=== PATIENT | female | born 1935 | race Caucasian/White ===

== ENCOUNTER 2017-03-26 06:00 | Emergency (ER) | payer MEDICARE ==
[~2017-03-26] VITALS: Ht 165.1 cm; Wt 70.0 kg
[~2017-03-26 06:00] MED LIST: ASPIRIN EC81 MG PO; BENADRY2 EX; BENADRYL 50MG C50 MG PO; EFFEXOR XR150 MG PO; HYDROCHLOROT12.5 MG PO; MEDDOSEPAK PO; METAXALONE PO; OXYCODONE HCL5 MG PO; PARICALCITOL1 MCG PO; PROAMATINE5 MG PO; PROTONIX40 M2 PO; REQUIP0.5 MG PO; TOLTERODINE TART2 MG PO; TOVIAZ4 MG PO; VENLAFAXINE150 MG OR; VYTORIN 10/201 TAB PO; ZESTRIL10 M1 PO; ZETIA10 MG PO; ZOCOR20 MG PO
[2017-03-26 06:26] VITALS: BP 164/82
== END 2017-03-26 06:35 | disposition home or self-care (01) ==
LOC: ED 06:00
DX: R04.0 Epistaxis (principal)

== ENCOUNTER 2017-05-25 17:31 | Inpatient (IN) | payer MEDICARE ==
[~2017-05-25] VITALS: Ht 165.1 cm; Wt 64.0 kg
[~2017-05-25 17:31] MED LIST changes: -ASPIRIN EC81 MG PO; +BAYER ASPIRIN E81 MG PO
--- NOTE | 2017-05-25 17:31 | NUR ---
PT IMMEDIATLEY TO ROOM VIA EMS
--- NOTE | 2017-05-25 17:32 | NUR ---
PATIENT ASSESSED FOR POSSIBLE CVA. STROKE ALERT CALLED AND PATIENT TRANSPORTED TO RADIOLOGY FOR CT SCAN. PATIENT LAST KNOWN WELL TIME WAS 2 DAYS PRIOR. PATIENT ALERT TO PLACE AND TIME. PATIENT HAS SLURRED SPEECH WITH SLIGHT LEFT SIDED FACIAL DROOP AND LEFT LOWER EXTREMITY DRIFT. PATIENT ABLE TO IDENTIFY PICTURES PRESENTED IN FROM OF HER AND DESCRIBE WHAT SHE SEES. PATIENT DOES REPEAT WORDS AND PHRASES BACK TO YOU CORRECTLY BUT WORDS ARE SLURRED. PHYSICIAN AT BEDSIDE.
[2017-05-25] MEDS ORDERED: MAGNESIUM500 M3 PO (17:51)
[2017-05-25] MEDS ORDERED: VENLAFAXINE225 MG PO (17:52)
[2017-05-25] MEDS ORDERED: CALCI17 PO (17:53)
[2017-05-25] MEDS ORDERED: VITAMIN D2400 UNIT PO (17:53)
[2017-05-25] MEDS ORDERED: REQUIP XL2 MG PO (17:54)
[2017-05-25] MEDS ORDERED: LOPRESSOR25 M1 PO (17:55)
[2017-05-25] MEDS ORDERED: MIDODRINE10 MG PO (17:55)
[2017-05-25] MEDS ORDERED: PERCOCET1 TA4 PO (17:57)
[2017-05-25] MEDS ORDERED: VITAMIN D50000 UNIT PO (17:58)
--- NOTE | 2017-05-25 18:38 | NUR ---
PATIENT RESTING AWAITING LAB RESULTS PATIENT DENIES ANY PAIN AT THIS TIME. PATIENT REMAINS WITH SLURRED SPEECH AND LEFT LOWER EXTREMITY DRIFT.
[2017-05-25 18:47] LABS: HEMATOCRIT 35.3 % (37.0-47.0); HEMOGLOBIN 11.4 g/dl (12.0-16.0); IMMATURE GRANULOCYTES 0.7 % (0.0-1.0); MEAN CELL VOLUME 90.5 fL CALC (80.0-100.0); MEAN CORPUSCULAR HGB 29.2 pG CALC (26.0-32.0); MEAN CORPUSCULAR HGB CONC 32.3 g/L CALC (32.0-36.0); NEUT# 5.01 thou/uL (2.00-7.15); RED BLOOD COUNT 3.9 mill/uL (4.20-5.60); RED CELL DISTRI WIDTH 15.4 % (11.5-15.5)
[2017-05-25 19:06] LABS: ALBUMIN 3.8 g/dL (3.2-5.0); BILIRUBIN, TOTAL 0.8 mg/dL (0.0-1.4); CALCIUM 9.9 mg/dL (8.4-10.2); CREATININE 2.8 mg/dL (0.5-1.0); POTASSIUM 5.1 mmol/l (3.5-5.1); TOTAL PROTEIN 6.1 g/dL (6.3-8.2)
--- NOTE | 2017-05-25 19:10 | NUR ---
ASSISTED TO BEDSIDE COMMODE FOR URINALYSIS.
[2017-05-25 19:31] LABS: AMYLASE 43 u/l (30-110); LIPASE 134 u/l (23-300)
[2017-05-25 19:48] LABS: URINE BILIRUBIN - DIPSTICK NEGATIVE (NEGATIVE); URINE BLOOD DIPSTICK SMALL (NEGATIVE); URINE CLARITY SLIGHT CLOUDY; URINE COLOR YELLOW; URINE GLUCOSE - DIPSTICK NEGATIVE (NEGATIVE); URINE KETONE NEGATIVE (NEGATIVE); URINE PROTEIN - DIPSTICK 30 mg/dL (NEG-TRACE); URINE SPECIFIC GRAVITY >=1.030; URINE UROBILINOGEN - DIPSTICK 0.2 E.U./dL (0.2)
[2017-05-25 19:50] LABS: URINE LEUK ESTERASE SMALL (NEGATIVE); URINE NITRITE - DIPSTICK POSITIVE (Negative)
[2017-05-25 20:02] LABS: URINE BACTERIA MODERATE hpf; URINE SQUAMOUS EPITHELIAL CELL FEW EPI/hpf (0-FEW); URINE WBC 20-50 WBC/hpf (0-5)
--- NOTE | 2017-05-25 20:30 | NUR ---
PT. SITTING AT BEDSIDE AT THIS TIME. DENIES COMPLAINTS OF PAIN OR NEED. REMAINS NEUROLOGICALLY INTACT WITHOUT ANY DEFICITS NOTED. CALL LIGHT REMAINS WITHIN REACH.
--- NOTE | 2017-05-25 21:40 | NUR ---
SON AT BEDSIDE AT THIS TIME. SON AND PATIENT UPDATED ON CURRENT LAB RESULTS AND PENDING PHYSICIAN EVALUATION. DENIES OTHER COMPLAINTS AT THIS TIME. VSS. WILL CONTINUE TO ASSESS.
--- NOTE | 2017-05-25 22:15 | NUR ---
PT. PROVIDED WITH FOOD AND FLUIDS AT THIS TIME. UPDATED ON PLAN OF CARE AND NEED FOR POSSIBLE ADMISSION.
--- NOTE | 2017-05-25 22:44 | NUR ---
REPORT TO JOSE LOUIS.
--- NOTE | 2017-05-25 23:20 | NUR ---
PT. TAKEN UP TO MED/SURG AT THIS TIME.
[2017-05-25 23:25] VITALS: BP 151/78
--- NOTE | 2017-05-25 23:25 | NUR ---
PT ARRIVED TO UNIT VIA WHEELCHAIR WITH ER STAFF. ALERT AND ORIENTED. DENIES PAIN AT THIS TIME. RESPIRATIONS EVEN AND UNLABORED. COMPOUNDING AND FINISHING SUPERVISOR IN PLACE. ORIENTED TO ROOM AND CALL LIGHT SYSTEM. ABT GIVEN WITH NO ADVERSE EFFECTS NOTED. AFEBRILE. IV FLUIDS INFUSING ADEQUATELY. SAFETY MEASURES IN PLACE. CALL LIGHT WITHIN REACH.
--- NOTE | 2017-05-26 01:27 | NUR ---
PT FOUND WITH IV DISLODGED AND SENIOR NETWORK SYSTEMS ENGINEER REMOVED AND ON FLOOR. PT FOUND LAYING IN BED IN LEFT SIDED POSITION. STATES THAT SHE DOES NOT REMEMBER REMOVING IV AND TELE. BOTH REPLACED. 20 MINUTES LATER PT FOUND AMBULATING IN ROOM WITH OTC ASPIRIN BOTTLE OPEN. MEDICATION REMOVED FROM PT AND ASSISTED BACK TO BED. GAVE ROXICODONE AT THIS TIME. WILL CONTINUE TO MONITOR.
--- NOTE | 2017-05-26 03:29 | NUR ---
PT RESTLESS, BED ALARM PUT IN PLACE. NEW IV STARTED TO LFA; IV FLUIDS INFUSING ADEQUATELY. A&OX3, HOWEVER, APPEARS DISORIENTED AT TIMES TO SITUATION. NO CHANGES IN ASSESSMENT NOTED. SAFETY MEASURES IN PLACE. CALL LIGHT WITHIN REACH.
[2017-05-26 04:50] VITALS: BP 148/87
[2017-05-26 05:37] LABS: HEMATOCRIT 34.7 % (37.0-47.0); HEMOGLOBIN 11.2 g/dl (12.0-16.0); MEAN CELL VOLUME 90.1 fL CALC (80.0-100.0); MEAN CORPUSCULAR HGB 29.1 pG CALC (26.0-32.0); MEAN CORPUSCULAR HGB CONC 32.3 g/L CALC (32.0-36.0); RED BLOOD COUNT 3.85 mill/uL (4.20-5.60); RED CELL DISTRI WIDTH 15.5 % (11.5-15.5)
[2017-05-26 05:42] LABS: ALBUMIN 3.6 g/dL (3.2-5.0); BILIRUBIN, TOTAL 0.5 mg/dL (0.0-1.4); CALCIUM 9.5 mg/dL (8.4-10.2); CREATININE 2.5 mg/dL (0.5-1.0); POTASSIUM 4.4 mmol/l (3.5-5.1); TOTAL PROTEIN 5.9 g/dL (6.3-8.2)
--- NOTE | 2017-05-26 07:00 | NUR ---
RECEIVED BEDSIDE REPORT FROM HERIBERTO GARCIA. IN BATHROOM WITH STAND BY ASSIST. DENIES ANY NEEDS AT THIS TIME. #22 LFA INFUSING WOITHOUT DIFFICULTY, SITE APPEARS HEALTHY. PLAN OF CARE DISCUSSED. SAFETY PRECAUTIONS REINFORCED. BED IN LOWEST POSITION WITH WHEELS LOCKED. CALL LIGHT WITHIN REACH. WILL CONTINUE TO MONITOR.
[2017-05-26 08:54] VITALS: BP 133/77
--- NOTE | 2017-05-26 09:30 | NUR ---
SITTING ON SIDE OF BED. RESPS EVEN AND UNLABORED ON ROOM AIR, TELE MONITOR IN PLACE. #22 LFA INFUSING WITHOUT DIFFICULTY, SITE APPEARS HEALTHY. MEDICATED WITH TYLENOL 500MG PO FOR C/O 5/10 FLANK PAIN. CALL LIGHT WITHIN REACH. WILL CONTINUE TO MONITOR.
--- NOTE | 2017-05-26 10:30 | NUR ---
DR AGUIRRE IN TO SEE PT, NEW ORDERS RECEIVED.
[2017-05-26 11:03] VITALS: BP 155/94
[2017-05-26 15:29] VITALS: BP 159/87
--- NOTE | 2017-05-26 16:50 | NUR ---
SITTING ON EDGE OF BED, RESPS EVEN AND UNLABORED ON ROOM AIR, TELE MONITOR IN PLACE. MEDICATED WITH ROXICODONE PO FOR C/O OF 5/10 HEAD PAIN. WILL CONTINUE TO MONITOR. CALL LIGHT WITHIN REACH. BED ALARM ON FOR SAFETY.
[2017-05-26 18:55] VITALS: BP 163/67
--- NOTE | 2017-05-26 22:20 | NUR ---
PT RESTING IN SUPINE POSITION;PT NOTED TO BE VERY RESTLESS;PT A&O TO PERSON AND PLACE,SLIGHT CONFUSION AT TIMES;ASSESSMENT COMPLETED;IV FLUIDS INFUSING WELL TO LFA;RESPIRATIONS EVEN AND UNLABORED ON RA;TELE MONITOR IN PLACE;PT DENIES ANY PAIN OR DISCOMFORTS;SKIN INTACT;SAFETY PRECAUTIONS REINFORCED;BED ALARM ON FOR PT SAFETY;BED IN LOWEST POSITION WITH CALL LIGHT IN REACH;WILL CONTINUE TO MONITOR
[2017-05-26 23:25] VITALS: BP 140/68
--- NOTE | 2017-05-27 01:55 | NUR ---
PT AMBULATED WITH STEADY GAIT TO THE RESTROOM AND VOIDED 500CC OF YELLOW,CLOUDY URINE;PT DENIES ANY NEEDS AT THIS TIME;IV FLUIDS INFUSING WELL TO LFA;PT RE-POSITIONED BACK INTO BED AND ADDITIONAL BLANKETS PROVIDED;BED ALARM IN PLACE FOR PT SAFETY;CALL LIGHT IN REACH;WILL CONTINUE TO MONITOR
--- NOTE | 2017-05-27 03:51 | NUR ---
MANUAL BP OF 198/96 HR 69 OBTAINED AT THIS TIME;PT DENIES ANY PAIN OR DISCOMFORTS;IV APRESOLINE TO BE GIVEN BY TONY MEDINA;WILL CONTINUE TO MONITOR
--- NOTE | 2017-05-27 03:53 | NUR ---
PT'S B/P 198/96 AND HR 69, MEDICATED WITH ORDERED APRESOLINE, PRMIARY NURSE TO REASSESS B/P.
--- NOTE | 2017-05-27 04:11 | NUR ---
PT IS REFUSING LABS THIS MORNING STATING "I WANT ANSWERS, NO ONE CAN TAKE MY BLOOD";PT EDUCATED ON WHY LABS ARE NEEDED BUT STILL CONTINUES TO REFUSE,STATES "ILL TALK TO MY DOCTOR ABOUT THIS";WILL CONTINUE TO MONITOR
[2017-05-27 04:50] VITALS: BP 198/96
[2017-05-27 05:56] VITALS: BP 180/93
--- NOTE | 2017-05-27 07:00 | NUR ---
RECEIVED BEDSIDE REPORT FROM VELIA GARCIA. SITTING IN BEDSIDE RECLINER. RESPS EVEN AND UNLABORED ON ROOM AIR, TELE MONITOR IN PLACE. DENIES PAIN OR DISCOMFORT AT THIS TIME. PLAN OF CARE DISCUSSED. SAFETY PRECAUTIONS REINFORCED. BED IN LOWEST POSITION WITH WHEELS LOCKED. BED ALARM ON FOR SAFETY. CALL LIGHT WITHIN REACH. WILL CONTINUE TO MONITOR.
[2017-05-27 09:15] VITALS: BP 160/81
--- NOTE | 2017-05-27 10:00 | NUR ---
DR AGUIRRE IN TO SEE PT, NEW ORDERS RECEIVED.
[2017-05-27 10:07] LABS: HEMATOCRIT 36.6 % (37.0-47.0); HEMOGLOBIN 11.6 g/dl (12.0-16.0); IMMATURE GRANULOCYTES 0.4 % (0.0-1.0); MEAN CORPUSCULAR HGB 29.1 pG CALC (26.0-32.0); MEAN CORPUSCULAR HGB CONC 31.7 g/L CALC (32.0-36.0); NEUT# 7.55 thou/uL (2.00-7.15); RED BLOOD COUNT 3.98 mill/uL (4.20-5.60); RED CELL DISTRI WIDTH 15.6 % (11.5-15.5)
[2017-05-27] MEDS ORDERED: METAXALONE800 M1 PO (10:08)
[2017-05-27] MEDS ORDERED: ATORVASTATIN CA20 MG PO (10:09)
[2017-05-27] MEDS ORDERED: OXYBUTYNIN CHLO10 MG PO (10:10)
[2017-05-27 10:22] LABS: INTERNATIONAL NORMALIZED RATIO 1.1 RATIO (0.7-1.3); PROTHROMBIN TIME 11.9 SECONDS (9.0-12.5)
[2017-05-27 10:27] LABS: ALBUMIN 3.7 g/dL (3.2-5.0); BILIRUBIN, TOTAL 0.6 mg/dL (0.0-1.4); CALCIUM 9.1 mg/dL (8.4-10.2); CREATININE 1.7 mg/dL (0.5-1.0); POTASSIUM 4.3 mmol/l (3.5-5.1)
[2017-05-27 11:07] VITALS: BP 171/76
--- NOTE | 2017-05-27 12:30 | NUR ---
LYING IN BED ON RIGHT SIDE, BILAT LEGS RESTLESS. C/O 6/10 BILAT KNEE PAIN. MEDICATED WITH ROXYCODONE PO FOR COMFORT. PO FLUIDS OFFERED. CALL LIGHT WITHIN REACH. WILL CONTINUE TO MONITOR.
[2017-05-27 15:26] VITALS: BP 170/86
--- NOTE | 2017-05-27 15:44 | NUR ---
ATTEMPTED TO DO ASSESSMENT WITH PATIENT, HOWEVER WAS INFORMED BY NURSING THAT PT'S BLOOD PRESSURE WAS 200/90. INFORMED THE PT THAT WE NEED TO DEFER THE ASSESSMENT. CHECKED PT'S SPO2 WITH 2L OF O2 = 86%. ALSO REPORTS FEELING EXHAUSTED AND REQUESTED TO LET HER SLEEP.
--- NOTE | 2017-05-27 16:00 | NUR ---
RESTING IN BED WITH EYES CLOSED, AWAKENS EASILY. RESPS EVEN AND UNLABORED ON ROOM AIR, TELE MONITOR IN PLACE. PO FLUIDS OFFERED. VOICES NO NEEDS AT THIS TIME. CALL LIGHT WITHIN REACH. WILL CONTINUE TO MONITOR.
--- NOTE | 2017-05-27 20:30 | NUR ---
PT RESTING IN SUPINE POSITION;PT DENIES ANY PAIN OR DISCOMFORTS AT THIS TIME BUT DOES REQUEST A PRN SLEEPING PILL;ASSESSMENT COMPLETED;IV FLUIDS INFUSING WELL TO LFA;TELE MONITOR IN PLACE;SKIN INTACT;PT RE-ORIENTED TO ROOM AND CALL LIGHT SYSTEM;SAFETY PRECAUTIONS REINFORCED;PT VOIDED 300CC OF YELLOW,CLOUDY URINE;PT RE-POSITIONED IN BED,ADDITIONAL BLANKETS PROVIDED;PT DENIES ANY OTHER NEEDS AT THIS TIME;PT EDUCATED TO CALL FOR ASSISTANCE IF NEEDED;BED ALARM ON FOR PT SAFETY;CALL LIGHT WITHIN REACH;WILL CONTINUE TO MONITOR
[2017-05-28] VITALS (9 sets, daily range): BP systolic 138–186; BP diastolic 64–101
--- NOTE | 2017-05-28 00:25 | NUR ---
PT COMPLAINS OF PAIN TO THE BLE AND REQUESTS PRN PAIN MEDICATION;PT MEDICATED WITH PRN ROXICODONE;PT DENIES ANY OTHER NEEDS;IV FLUIDS INFUSING WELL;BED ALARM ON FOR PT SAFETY;WILL CONTINUE TO MONITOR
--- NOTE | 2017-05-28 04:50 | NUR ---
MANUAL BP OF 186/101 HR 66;PRN APRESOLINE ADMINISTERED BY TONY POOLE AT THIS TIME;PT DENIES ANY PAIN OR DISCOMFORTS;RESPIRATIONS EVEN AND UNLABORED ON RA;IV FLUIDS INFUSING WELL TO LFA;BP TO BE RE-ASSESSED;PT DENIES ANY NEEDS AT THIS TIME;BED ALARM ON;CALL LIGHT IN REACH;WILL CONTINUE TO MONITOR CLOSELY
--- NOTE | 2017-05-28 06:17 | NUR ---
MANUAL BP OF 178/86 OBTAINED AT THIS TIME;WILL CONTINUE TO MONITOR
[2017-05-28 06:43] LABS: HEMATOCRIT 37.1 % (37.0-47.0); HEMOGLOBIN 12.1 g/dl (12.0-16.0); IMMATURE GRANULOCYTES 0.7 % (0.0-1.0); MEAN CORPUSCULAR HGB CONC 32.6 g/L CALC (32.0-36.0); NEUT# 5.99 thou/uL (2.00-7.15); RED BLOOD COUNT 4.17 mill/uL (4.20-5.60); RED CELL DISTRI WIDTH 15.9 % (11.5-15.5)
[2017-05-28 07:06] LABS: CALCIUM 9.1 mg/dL (8.4-10.2); CREATININE 1.2 mg/dL (0.5-1.0); POTASSIUM 4.1 mmol/l (3.5-5.1)
[2017-05-28 07:08] LABS: ALBUMIN 3.7 g/dL (3.2-5.0); CALCIUM 9.1 mg/dL (8.4-10.2); CREATININE 1.2 mg/dL (0.5-1.0); POTASSIUM 4.1 mmol/l (3.5-5.1)
--- NOTE | 2017-05-28 07:30 | NUR ---
PT RESTING WITH EYES CLOSED; NO S/SX OF DISTRESS NOTED; CALL FOSS WITHIN REACH; WILL CONTINUE TO MONITOR.
--- NOTE | 2017-05-28 09:30 | NUR ---
PT ASSISTED TO SHOWER BY TOOL MACHINE SETUP OPERATOR; TOLERATED WELL; CALL FOSS WITHIN REACH; WILL CONTINUE TO MONITOR.
--- NOTE | 2017-05-28 10:30 | NUR ---
DISCUSSED POC WITH DAUGHTER.
[2017-05-28 11:10] LABS: ALBUMIN 3.7 g/dL (3.2-5.0); BILIRUBIN, TOTAL 0.7 mg/dL (0.0-1.4); TOTAL PROTEIN 5.8 g/dL (6.3-8.2)
--- NOTE | 2017-05-28 13:30 | NUR ---
PT SET OFF BED ALARM; OOB; STATES JUST "WANTING TO STRETCH MY LEGS"; PT DENIES PAIN; PT ASSISTED TO CHAIR; BED ALARM IN PLACE; CALL FOSS WITHIN REACH; WILL CONTINUE TO MONITOR.
--- NOTE | 2017-05-28 16:13 | NUR ---
PT MEDICATED FOR BILAT LE PAIN 06/23; IVF INFUSING WITHOUT DIFFICULTY; CALL FOSS WITHIN REACH; WILL CONTINUE TO MONITOR.
--- NOTE | 2017-05-28 17:21 | NUR ---
MANUAL BP 170/99; PT GIVEN HYDRALIZNE 10MG IV ORDERD; CALL FOSS WITHIN REACH; BED ALARM IN PLACE; WILL CONTINUE TO MONITOR.
--- NOTE | 2017-05-28 19:47 | NUR ---
PT RESTING ON RIGHT SIDE WITH EYES CLOSED, RESPIRATIONS EVEN AND UNLABORED. C/O HEADACHE, B/P 176/81, HR 75. MEDICATED WITH ROXICODONE AND LOPRESSOR AT THIS TIME. A/O TO SELF, PLACE AND . ENCOURAGED TO USE CALL LIGHT FOR ASSISTANCE, BED ALARM IN PLACE. WILL CONTINUE TO MONITOR.
--- NOTE | 2017-05-28 23:00 | NUR ---
PT USING CALL LIGHT FOR ASSISTNACE TO BATHROOM, OOB TO BATHROOM WITH STEADY GAIT, VOIDING CLEAR YELLOW URINE, BACK TO BED. CALL LIGHT IN REACH.
[2017-05-29] VITALS (7 sets, daily range): BP systolic 140–181; BP diastolic 68–89
--- NOTE | 2017-05-29 04:33 | NUR ---
JOSIAH JIMENEZ MEDICATING PT WITH HYDRALAZINE IV DUE TO B/P 181/88. WILL CONTINUE TO MONITOR.
[2017-05-29 04:57] LABS: CREATININE 1.2 mg/dL (0.5-1.0); POTASSIUM 3.8 mmol/l (3.5-5.1)
--- NOTE | 2017-05-29 05:55 | NUR ---
B/P 164/83, HR 75. OOB AMBULATING HALLWAY PER PT REQUEST WITH THIS WRITTER AT HER SIDE. BACK TO ROOM, SITTING IN RECLINER CHAIR. BED ALARM IN PLACE. CALL LIGHT IN REACH.
[2017-05-29 05:56] LABS: HEMATOCRIT 37.9 % (37.0-47.0); HEMOGLOBIN 12.3 g/dl (12.0-16.0); IMMATURE GRANULOCYTES 0.3 % (0.0-1.0); MEAN CELL VOLUME 89.8 fL CALC (80.0-100.0); MEAN CORPUSCULAR HGB 29.1 pG CALC (26.0-32.0); MEAN CORPUSCULAR HGB CONC 32.5 g/L CALC (32.0-36.0); NEUT# 4.58 thou/uL (2.00-7.15); RED BLOOD COUNT 4.22 mill/uL (4.20-5.60)
--- NOTE | 2017-05-29 08:10 | NUR ---
PT C/O PAIN TO BILAT KNEES 05/23, MEDICATED ORDERED; HEATING PACK PLACE TO RT KNEE; TELE MONITOR IN PLACE; ENCOURAGE USE OF CALL LIGHT IF ANY ASSISTANCE IS NEEDED; WILL CONTINUE TO MONITOR.
--- NOTE | 2017-05-29 13:00 | NUR ---
PT RESTING WITH EYES CLOSED; NO S/SX OF DISTRESS NOTED; BED ALARM IN PLACE; CALL FOSS WITHIN REACH; WILL CONTINUE TO MONITOR.
--- NOTE | 2017-05-29 19:19 | NUR ---
BEDSIDE REPORT RECEIVED BY TONY PRATER. PT RESTING IN BED WITH EYES OPEN. ALERT AND ORIENTED. TELE IN PLACE. C/O MILD PAIN TO LEFT LEG. RESPIRATIONS EVEN AND UNLABORED. PLAN OF CARE REVIEWED. PT ENCOURAGED TO VERBALIZE CONCERNS. STATES UNDERSTANDING. SAFETY MEASURES IN PLACE INCLUDING BED ALARM. CALL LIGHT SYSTEM REVIEWED AND IN REACH.
--- NOTE | 2017-05-30 00:56 | NUR ---
PT ASLEEP AT THIS TIME. NO SIGNS OF DISTRESS NOTED. RESPIRATIONS EVEN AND UNLABORED. SAFETY MEASURES IN PLACE. CALL LIGHT WITHIN REACH.
[2017-05-30 04:00] VITALS: BP 154/89
--- NOTE | 2017-05-30 04:18 | NUR ---
PT ASLEEP AT THIS TIME. NO SIGNS OF DISTRESS NOTED. RESPIRATIONS EVEN AND UNLABORED. NO CHANGES IN ASSESSMENT NOTED. SAFETY MEASURES IN PLACE. CALL LIGHT WITHIN REACH.
[2017-05-30 05:38] LABS: ALBUMIN 3.5 g/dL (3.2-5.0); BILIRUBIN, TOTAL 0.5 mg/dL (0.0-1.4); CALCIUM 9.2 mg/dL (8.4-10.2); CREATININE 1.1 mg/dL (0.5-1.0); POTASSIUM 3.9 mmol/l (3.5-5.1); TOTAL PROTEIN 5.9 g/dL (6.3-8.2)
--- NOTE | 2017-05-30 07:00 | NUR ---
RECEIVED BEDSIDE REPORT FROM HERIBERTO GARCIA. RESTING IN BED ON LEFT SIDE WITH EYES CLOSED, AWAKENS EASILY. RESPS EVEN AND UNLABORED ON ROOM AIR, TELE MONITOR IN PLACE. #20 LFA INFUSING WITHOUT DIFFICULTY, SITE APPEARS HEALTHY. VOICES NO NEEDS AT THIS TIME. PLAN OF CARE DISCUSSED. SAFETY PRECAUTIONS REINFORCED. BED IN LOWEST POSITION WITH WHEELS LOCKED. BED ALARM ON FOR SAFETY. CALL LIGHT WITHIN REACH. ENCOURAGED PT TO CALL FOR ANY NEEDS.
[2017-05-30 08:20] VITALS: BP 147/75
--- NOTE | 2017-05-30 10:15 | NUR ---
DR AGUIRRE IN TO SEE PT, AWAITING NEW ORDERS.
--- NOTE | 2017-05-30 10:30 | NUR ---
AMBULATING IN HALLWAY WITH PHYSICAL THERAPY.
--- NOTE | 2017-05-30 10:52 | NUR ---
Pt seen for balance/transfers and gait per PT. Pt moved indep from supine to and from sitting, transferred indep in movement (IV line managed by therapist). Pt ambulated 2x 75 feet with supervision and assist with IV pole. No LOB was noted with gait, pt had decrease arm swing. Standing balance activities were performed with SBA/CGA. SLS was 3 sec either legs. 02 sat were in mid 90's thru treatment, HR 60 to 78. Pt encouraged to walk with nursing and to spend more time out of bed. Pt left in bed with call lee in reach and instructed to have assist with all mobility. Gait belt and non skid socks in place during treatment.
[2017-05-30 11:28] VITALS: BP 127/68
--- NOTE | 2017-05-30 12:23 | NUR ---
SITTING ON EDGE OF BED EATING LUNCH. RESPS EVEN AND UNLABORED ON ROOM AIR, TELE MONITOR IN PLACE. #20LFA INFUSING WITHOUT DIFFICULTY, SITE APPEARS HEALTHY. VOICES NO NEEDS AT THIS TIME. CALL LIGHT WITHIN REACH. WILL CONTINUE TO MONITOR.
[2017-05-30] MEDS ORDERED: PERCOCET1 TA4 PO (13:33)
[2017-05-30] MEDS ORDERED: AMLODIPINE BESYL5 MG PO (13:34)
--- NOTE | 2017-05-30 15:04 | NUR ---
AMBULATING IN HALLWAY WITH STEADY GAIT ACCOMPANIED BY ABRAHAM DRAWING FRAME TENDER.
[2017-05-30 16:04] VITALS: BP 151/82
--- NOTE | 2017-05-30 16:07 | NUR ---
RESTING IN BED WITH EYES OPEN. RESPS EVEN AND UNLABORED ON ROOM AIR, TELE MONITOR IN PLACE. MEDICATED WITH ROXYCODONE PO FOR C/O 7/10 BILAT KNEES PAIN. PO FLUIDS OFFERED. CALL LIGHT WITHIN REACH. WILL CONTINUE TO MONITOR.
[2017-05-30 19:45] VITALS: BP 148/79
--- NOTE | 2017-05-30 20:05 | NUR ---
MEDICATED WITH ROXICODONE FOR C/O BILAT KNEE PAIN 06/23. A/O X3, RESPIRATIONS EVEN AND UNLABORED. BED ALARM APPLIED DUE TO BEING SPONTANIOUS WHEN NEEDING TO USE BATHROOM. NS INFUSING TO LFA AT 80CC/HR. CALL LIGHT IN REACH.
[2017-05-31 01:18] VITALS: BP 149/78
--- NOTE | 2017-05-31 01:18 | NUR ---
USING CALL LIGHT FOR ASSISTANCE, OOB TO BATHROOM WITH STEADY GAIT, VOIDING CLEAR YELLOW URINE. BACK TO BED, BED ALARM IN PLACE. CALL LIGHT IN REACH.
[2017-05-31 04:08] VITALS: BP 156/92
--- NOTE | 2017-05-31 04:15 | NUR ---
MEDICATED WITH ROXICODONE FOR C/O BILAT KNEE PAIN 06/23.
--- NOTE | 2017-05-31 07:00 | NUR ---
RECEIVED BEDSIDE REPORT FROM ED GARCIA. RESTING IN BED WITH EYES CLOSED, AWAKENS EASILY. RESPS EVEN AND UNLABORED ON ROOM AIR, TELE MONITOR IN PLACE. #20 LFA INFUSING WITHOUT DIFFICULTY, SITE APPEARS HEALTHY. C/O BILAT KNEE PAIN. WILL MEDICATE PER MAR. PLAN OF CARE DISCUSSED. SAFETY PRECAUTIONS REINFORCED. BED IN LOWEST POSITION WITH WHEELS LOCKED. CALL LIGHT WITHIN REACH. ENCOURAGED PT TO CALL FOR ANY NEEDS. BED ALARM ON FOR SAFETY.
[2017-05-31 07:26] VITALS: BP 170/90
--- NOTE | 2017-05-31 08:40 | NUR ---
DR AGUIRRE IN TO SEE PT, NEW ORDERS RECEIVED.
--- NOTE | 2017-05-31 09:07 | NUR ---
AMBULATING IN HALLWAY WITH PHYSICAL THERAPY.
--- NOTE | 2017-05-31 09:41 | NUR ---
Pt resting in bed. She reported bilateral knee pain but did not give a number. Pt moved supine to and from sit with supervision. Transfers required supervision and verbal cues for safety. Pt ambulated 2x 70' with SBA/CGA. Balance acitivities performed with CGA. Decrease SLS time continues. Pt 02 sats were 94-95% with HR 66-78. Gait belt and non skid socks in place during treatment. Pt left resting in bed and reminded to have assist with mobility.
[2017-05-31 11:03] VITALS: BP 132/75
--- NOTE | 2017-05-31 14:56 | NUR ---
PATIENT IS NOT SAFE FOR D/C HOME. SHE REQUIRES SUPERVISION TO [facility] FOR ALL TRANSFER AND AMB. SHE RESPONDS WELL TO VERBAL CUEING BUT DOES NOT RECALL INSTRUCTIONS. IT IS RECOMMENDED THAT SHE HAVE INPATIENT REHAB AT D/C TO REINFORCE SAFETY, ENDURANCE, MOBILTY. OTHERWISE SHE WILL REQUIRE 24/7 SUPERVISION/ASSIST AT HOME. PATIENT DEMONSTRATES POTENTIAL TO INCREASE HER SAFETY WITH SKILLED INTERVENTION
--- NOTE | 2017-05-31 15:18 | NUR ---
ASSISTED TO BATHROOM WITH STAND BY ASSIST. PT AMBULATES WITH STEADY GAIT. RESPS EVEN AND UNLABORED ON ROOM AIR, TELE MONITOR IN PLACE. MEDICATED WITH ROXYCODONE PO FOR C/O 8/10 BILAT KNEE PAIN. PO FLUIDS OFFERED. CALL LIGHT WITHIN REACH. ENCOURAGED PT TO CALL FOR ANY NEEDS.
[2017-05-31 15:53] VITALS: BP 144/74
--- NOTE | 2017-05-31 19:23 | NUR ---
Discharge instructions given. Patient verbalizes understanding of same. Discharged in stable condition via Medical Transport to *Other with *Other. All belongings sent with pt. TO [facility].
--- NOTE | 2017-05-31 19:51 | NUR ---
NURSE TO NURSE REPORT CALLED TO JAMES GARCIA AT [facility].
== END 2017-05-31 19:20 | DRG 683 ==
LOC: ENPENDDIS → ED 17:31 → ED-I 22:09 → ED 22:32 → MS2 22:33
PROVIDERS: Emergency Medicine; Internal Medicine; Internal Medicine Nephrology; ADMIT Internal Medicine; ATTEND Internal Medicine
DX: N17.9 Acute kidney failure, unspecified (principal); N39.0 Urinary tract infection, site not specified; E87.2 Acidosis; C85.91 Non-Hodgkin lymphoma, unspecified, lymph nodes of head, face, and neck; F03.90 Unspecified dementia, unspecified severity, without behavioral disturbance, psychotic disturbance, mood disturbance, and anxiety; F05 Delirium due to known physiological condition; B96.20 Unspecified Escherichia coli [E. coli] as the cause of diseases classified elsewhere; N18.4 Chronic kidney disease, stage 4 (severe); E86.0 Dehydration; I12.9 Hypertensive chronic kidney disease with stage 1 through stage 4 chronic kidney disease, or unspecified chronic kidney disease; G25.81 Restless legs syndrome; K21.9 Gastro-esophageal reflux disease without esophagitis; E78.5 Hyperlipidemia, unspecified; R74.8 Abnormal levels of other serum enzymes; D63.1 Anemia in chronic kidney disease; I95.1 Orthostatic hypotension; Z91.81 History of falling
CPT/HCPCS: G0378